=== PATIENT | female | born 1945 | race Caucasian/White ===

== ENCOUNTER → 2022-04-29 | Outpatient (CLI) | payer MEDICARE, OTHER ==
[~2022-04-29] MED LIST: FAMO20 PO; HYDACE5 PO; HYDCHL12.5 PO; HYDROCHLOROTHIAZIDE; INDO50 PO; NORVASC; ZOCOR; ZYRTEC
== END | disposition home or self-care (01) ==
LOC: LAB 17:04 → LAB SHORT 17:04
DX: R10.9 Unspecified abdominal pain (principal)
CPT/HCPCS: 87086

== ENCOUNTER 2022-10-08 10:49 | Day surgery (SDC) | payer MEDICARE, OTHER ==
[~2022-10-08] VITALS: Ht 160 cm; Wt 71.5 kg
[2022-10-08] MEDS ORDERED: TRAM50 (11:08)
[2022-10-08] MEDS ORDERED: AMLO10 (11:08)
[2022-10-08] MEDS ORDERED: MONT10T (11:08)
[2022-10-08] MEDS ORDERED: POTCHL20ER (11:09)
== END 2022-10-08 13:02 | disposition home or self-care (01) ==
LOC: ORSCSDS 10:49
PROVIDERS: Student in an Organized Health Care Education/Training Program
PROC: 0DBM8ZX Excision of Descending Colon, Via Natural or Artificial Opening Endoscopic, Diagnostic (ICD-10-PCS; principal; 2022-10-08 12:15)
PROC: 0DBN8ZX Excision of Sigmoid Colon, Via Natural or Artificial Opening Endoscopic, Diagnostic (ICD-10-PCS; principal; 2022-10-08 12:15)
PROC: 0DBK8ZX Excision of Ascending Colon, Via Natural or Artificial Opening Endoscopic, Diagnostic (ICD-10-PCS; principal; 2022-10-08 12:15)
DX: Z12.11 Encounter for screening for malignant neoplasm of colon (principal); D12.4 Benign neoplasm of descending colon; D12.2 Benign neoplasm of ascending colon; D12.5 Benign neoplasm of sigmoid colon; K57.30 Diverticulosis of large intestine without perforation or abscess without bleeding; K64.8 Other hemorrhoids; I10 Essential (primary) hypertension; E78.5 Hyperlipidemia, unspecified; Z79.899 Other long term (current) drug therapy
CPT/HCPCS: 88305; J2704; J7120

== ENCOUNTER 2023-04-01 12:21 | Day surgery (SDC) | payer MEDICARE, OTHER ==
[~2023-04-01] VITALS: Ht 157.5 cm; Wt 68.4 kg
[~2023-04-01 12:21] MED LIST changes: +AMLO10; +MONT10T; +POTCHL20ER; +TRAM50
[2023-04-01 14:43] VITALS: BP 110/57
== END 2023-04-01 14:40 | disposition home or self-care (01) ==
LOC: ORSCSDS 12:21
PROVIDERS: Internal Medicine Gastroenterology
PROC: 0DBL8ZX Excision of Transverse Colon, Via Natural or Artificial Opening Endoscopic, Diagnostic (ICD-10-PCS; principal; 2023-04-01 13:45)
DX: Z12.11 Encounter for screening for malignant neoplasm of colon (principal); Z86.010 Personal history of colon polyps; D12.3 Benign neoplasm of transverse colon; I10 Essential (primary) hypertension; E78.5 Hyperlipidemia, unspecified; K64.8 Other hemorrhoids; K57.30 Diverticulosis of large intestine without perforation or abscess without bleeding; Z79.899 Other long term (current) drug therapy
CPT/HCPCS: 88305; J2704; J7120

== ENCOUNTER → 2023-07-07 | Outpatient (CLI) | payer MEDICARE, OTHER | LOC: LAB SHORT 13:56 → LAB 13:56 | DX: L08.9 Local infection of the skin and subcutaneous tissue, unspecified (principal) | CPT/HCPCS: 87070; 87077; 87147; 87186; 87205 ==

== ENCOUNTER → 2025-06-04 | Outpatient (CLI) | payer MEDICARE, OTHER | LOC: LAB 15:53 → LAB SHORT 15:53 | DX: N39.0 Urinary tract infection, site not specified (principal) | CPT/HCPCS: 87086 ==